=== PATIENT | male | born 1965 | race African-American/Black ===

== ENCOUNTER 2017-06-03 16:49 | Emergency (ER) | payer OTHER | END 2017-06-03 17:57 | disposition home or self-care (01) | LOC: ER 16:49 | DX: M25.571 Pain in right ankle and joints of right foot (principal); R60.0 Localized edema; E11.9 Type 2 diabetes mellitus without complications; I10 Essential (primary) hypertension; Z88.0 Allergy status to penicillin | CPT/HCPCS: 73610; 99284 ==

== ENCOUNTER 2018-02-10 19:17 | Emergency (ER) | payer OTHER ==
[~2018-02-10] VITALS: Ht 193 cm; Wt 176.9 kg
[~2018-02-10 19:17] MED LIST: ACET-704 PO; NAPR-695 PO
[2018-02-10 19:30] VITALS: BP 151/93
--- NOTE | 2018-02-10 20:54 | RAD ---
Right lower extremity venous Doppler dated 02/10/2018. No comparison available. CLINICAL INDICATION: Chronic swelling and ankle pain for 2 days. History of cellulitis. FINDINGS: Grayscale, color-flow and spectral waveform analysis performed to include the deep venous system of the right lower extremity. Normal compressibility, phasicity and augmentation of flow throughout. No filling defects are seen. There are a few borderline enlarged lymph nodes the right groin measuring up to 10 mm short axis. IMPRESSION: 1. No evidence of right lower extremity deep vein thrombosis. 2. Borderline enlarged right groin lymph nodes, nonspecific. Electronically signed by: Rj Suggs MD (02/10/2018 8:51 PM) [facility]
--- NOTE | 2018-02-10 20:55 | RAD ---
3 views right ankle dated 02/10/2018. No comparison available. Clinical data indication: Ankle pain. FINDINGS: 3 views right ankle show normal bony alignment. No displaced fracture. No acute osseous or articular abnormality. Mild degenerative change of the tibiotalar joint and joints of midfoot/hindfoot. Prominent calcaneal spur. Vascular calcinosis. IMPRESSION: No acute radiographic abnormality. Mild degenerative changes as described above. Electronically signed by: Rj Suggs MD (02/10/2018 8:52 PM) [facility]
[2018-02-10] MEDS ORDERED: COLC0.6T34 PO (21:22)
--- NOTE | 2018-02-10 21:23 | PHYS DOC ---
Past Medical History Past Medical History: Diabetes-Type II, Hypertension, Other Additional Past Medical Histor: possible gout Past Surgical History: No Surgical History Alcohol Use: None Drug Use: None Adult General Chief Complaint Chief Complaint: ANKLE PROBLEM HPI HPI Patient is a 52 year old male who presents with right ankle pain. The patient states that he is not injured the extremity. He states the pain is extremely sharp and radiated up into his leg. He states it is hard to walk on that extremity due to the pain. He has had similar issues with this extremity in the past and was once told at the [facility] that he did have gout. He does not take any medications for gout at home. There is no heat or redness to the extremity. Review of Systems Review of Systems Constitutional: Denies fever or chills [] Respiratory: Denies cough or shortness of breath [] Cardiovascular: No additional information not addressed in HPI [] GI: Denies abdominal pain, nausea, vomiting, bloody stools or diarrhea [] : Denies dysuria or hematuria [] Musculoskeletal: See history of present illness Integument: Denies rash or skin lesions [] Neurologic: Denies headache, focal weakness or sensory changes [] Endocrine: Denies polyuria or polydipsia [] All other systems were reviewed and found to be within normal limits, except as documented in this note. Current Medications Current Medications Current Medications Medications (Trade) Dose Ordered Sig/[facility] Start Time Stop Time Status Last Admin Dose Admin Acetaminophen/ Hydrocodone Bitart (Lortab 5/325) 1 tab 1X ONCE 02/10/18 21:30 02/10/18 21:31 DC 02/10/18 21:30 1 TAB Allergies Allergies Allergies Coded Allergies Type Severity Reaction Last Updated Verified Penicillins Allergy Intermediate 06/03/17 Yes Physical Exam Physical Exam Constitutional: Well developed, well nourished, no acute distress, non-toxic appearance. [] Cardiovascular:Heart rate regular rhythm, no murmur [] Lungs & Thorax: Bilateral breath sounds clear to auscultation [] Abdomen: Bowel sounds normal, soft, no tenderness, no masses, no pulsatile masses. [] Skin: Warm, dry, no erythema, no rash. [] Back: No tenderness, no CVA tenderness. [] Extremities: tenderness to right mid foot with palpation, no cyanosis, no clubbing, ROM intact, no edema, ulcerations and sensation are intact distal to injury. [] Neurologic: Alert and oriented X 3, normal motor function, normal sensory function, no focal deficits noted. [] Psychologic: Affect normal, judgement normal, mood normal. [] Current Patient Data Vital Signs Vital Signs Date Time Temp Pulse Resp B/P (MAP) Pulse Ox O2 Delivery O2 Flow Rate FiO2 02/10/18 21:30 18 98 Room Air 02/10/18 19:30 98.0 80 151/93 (112) 98.0 EKG EKG [] Radiology/Procedures Radiology/Procedures []PATIENT: SRI LOFTON AACCOUNT: [id number]#: [id number] : 1965 LOCATION: ER AGE: 52 SEX: M EXAM STATUS: REG ER ORD. PHYSICIAN: DIEGO LARSEN APRN REASON: pain PROCEDURE: ANKLE RIGHT 3V 3 views right ankle dated 02/10/2018. No comparison available. Clinical data indication: Ankle pain. FINDINGS: 3 views right ankle show normal bony alignment. No displaced fracture. No acute osseous or articular abnormality. Mild degenerative change of the tibiotalar joint and joints of midfoot/hindfoot. Prominent calcaneal spur. Vascular calcinosis. IMPRESSION: No acute radiographic abnormality. Mild degenerative changes as described above. Electronically signed by: Jimy Suggs MD (02/10/2018 8:52 PM) [facility] Signed PATIENT: SRI LOFTON A ACCOUNT: [id number] : 1965 LOCATION: ER AGE: 52 SEX: M EXAM STATUS: REG ER ORD. PHYSICIAN: DIEGO LARSEN APRN REASON: pain and edema tolower right extremity PROCEDURE: VENOUS LOWER EXTREMITY RIGHT Right lower extremity venous Doppler dated 02/10/2018. No comparison available. CLINICAL INDICATION: Chronic swelling and ankle pain for 2 days. History of cellulitis. FINDINGS: Grayscale, color-flow and spectral waveform analysis performed to include the deep venous system of the right lower extremity. Normal compressibility, phasicity and augmentation of flow throughout. No filling defects are seen. There are a few borderline enlarged lymph nodes the right groin measuring up to 10 mm short axis. IMPRESSION: 1. No evidence of right lower extremity deep vein thrombosis. 2. Borderline enlarged right groin lymph nodes, nonspecific. Electronically signed by: Jimy Suggs MD (02/10/2018 8:51 PM) [facility] DICTATED and SIGNED BY: JIMY SUGGS MD DATE: 02/10/182049 Course & Med Decision Making Course & Med Decision Making Pertinent Labs and Imaging studies reviewed. (See chart for details) [] Dragon Disclaimer Dragon Disclaimer This electronic medical record was generated, in whole or in part, using a voice recognition dictation system. Departure Departure Impression: Primary Impression: Acute right ankle pain Disposition: HOME, SELF-CARE Condition: STABLE Referrals: NO PCP (PCP) Patient Instructions: Ankle Pain, Gout Additional Instructions: Take the medication as directed. Follow-up with your primary care provider in 3 days if not improving or return to the emergency department if worsening. Scripts Colchicine (COLCRYS) 0.6 Mg Tablet 0.6 MG PO TID for inflammation for 3 Days, #9 TAB Prov: DIEGO LARSEN APRN 02/10/18 DIEGO LARSEN APRN Feb 10, 2018 21:23
[2018-02-10] MEDS: HYDROcodone/APAP 5/325MG 1 TAB TABLET PO ONE (21:30)
== END 2018-02-10 21:34 | disposition home or self-care (01) ==
LOC: ER 19:17
DX: M25.571 Pain in right ankle and joints of right foot (principal); R60.0 Localized edema; E11.9 Type 2 diabetes mellitus without complications; I10 Essential (primary) hypertension; Z88.0 Allergy status to penicillin
CPT/HCPCS: 73610; 93971; 99284